=== PATIENT | male | born 1975 | race Caucasian/White ===

== ENCOUNTER → 2016-11-18 | Outpatient (CLI) | payer BC ==
--- NOTE | 2016-11-18 19:16 | CONS ---
CONSULTATION REASON FOR CONSULTATION: Sleep apnea. This is a 41-year-old male patient who screened positive for sleep apnea based on a routine physical examination that was done at [facility]. 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 He has been awake and alert. He does not fall asleep while driving. Never felt sleepy behind the wheel. He has never been involved in a motor vehicle accident. He snores, yet his denies that he quits breathing at night. He does not wake up gasping for air. No grinding of the teeth. No sleepwalking or sleeptalking. No restlessness in the lower extremities. No history of insomnia. He goes to bed around 10 p.m., wake up at 6 a.m. in the morning. He averages around 6 to 7 hours of sleep. He feels refreshed in the morning. His Sutter score is only 4. He has gained about 16 pounds over the past 2-1/2 years. PAST MEDICAL HISTORY: 1. Hypertension. 2. Obesity. PAST SURGICAL HISTORY: Plate and screws in the right ankle in 2005. DRUG ALLERGIES: NOT KNOWN. MEDICATIONS: Medications include lisinopril. SOCIAL HISTORY: Nonsmoker. Drinks alcohol socially. No history of substance abuse. FAMILY HISTORY: Negative for sleep apnea. REVIEW OF SYSTEMS: Twelve-point review of system was done. Positive findings are all mentioned above in the history of present illness. PHYSICAL EXAMINATION: HIS CURRENT VITAL: BP is 134/83, pulse 82, respirations 16, temperature 98.3, saturation 98% on room air. Weight is 271. Height is 5 feet 9 inches. Neck size is 17- 1/2 inches. GENERAL APPEARANCE: Calm, comfortable. HEENT: Mallampati class 4. No goiter or neck masses. LUNGS: Clear to auscultation. HEART: Sounds are regular rate and rhythm. Normal S1, S2. No S3, S4. No murmurs. ABDOMEN: Soft, nontender. No organomegaly. EXTREMITIES: No edema. No cyanosis or clubbing. IMPRESSION: 1. Obstructive sleep apnea suspected and currently under investigation. 2. Obesity with a body mass index of 39.4. 3. Loud snoring. 4. Works for the [employer]. Needs [employer] certification. PLAN: 1. Encourage weight loss. 2. Sleep in a sidewise body position. 3. Proceed with a home sleep study evaluating this patient for any sleep breathing disorder and decide on treatment accordingly. The patient is not having any major hypersomnia or sleepiness during the day and he seems to be at low risk of falling asleep while driving at this point. MMODL / IJN: [id number] /
== END | disposition home or self-care (01) ==
LOC: SLEEP 16:32
PROVIDERS: ATTEND Internal Medicine Critical Care Medicine
DX: R06.83 Snoring (principal); E66.9 Obesity, unspecified; I10 Essential (primary) hypertension; Z68.39 Body mass index [BMI] 39.0-39.9, adult; Z79.899 Other long term (current) drug therapy
CPT/HCPCS: 99211